=== PATIENT | female | born 1950 | race Caucasian/White ===

== ENCOUNTER → 2017-08-13 | Outpatient (CLI) | payer MEDICARE, SELFPAY ==
[~2017-08-13] MED LIST: ASPI81CH PO; ATEN100 PO; CHOL10002 PO; FENOFIBRIC ACI135 MG PO; FLUO10; Hair, Skin & N1 EACH PO; LEVSOD100 PO; LEVSOD50 PO; LOSA25 PO; METF500C PO; VENL75ER PO
[2017-08-14 10:19] LABS: Source ENDOCER/CERV
== END | disposition home or self-care (01) ==
LOC: LAB 14:40
PROVIDERS: Family Medicine
DX: Z12.4 Encounter for screening for malignant neoplasm of cervix (principal)
CPT/HCPCS: G0145

== ENCOUNTER → 2018-01-14 | Outpatient (CLI) | payer MEDICARE, SELFPAY ==
[~2018-01-14] MED LIST changes: -FLUO10
[2018-01-14 17:10] LABS: Albumin, Blood 3.6 g/dL (3.4-5.0); Albumin/Globulin Ratio 0.9 (0.8-1.8); Bun/Creatinine Ratio 18.6 (12.0-20.0); Calcium, Blood 9.8 mg/dL (8.5-10.1); Creatinine, Blood 1.67 mg/dL (0.40-1.00); Globulin, Blood 3.8 g/dL (2.2-4.0); Percent Saturation 18.3 % (15.0-50.0); Total Protein, Blood 7.4 g/dL (6.4-8.2)
== END ==
LOC: LAB SHORT 12:15 → LAB 12:15
PROVIDERS: Internal Medicine Hematology & Oncology
DX: C50.911 Malignant neoplasm of unspecified site of right female breast (principal); R92.8 Other abnormal and inconclusive findings on diagnostic imaging of breast; M89.9 Disorder of bone, unspecified
CPT/HCPCS: 80053; 82728; 83540; 83550

== ENCOUNTER → 2018-03-10 | Outpatient (CLI) | payer MEDICARE, SELFPAY ==
[2018-03-10 18:34] LABS: Creatinine Urine 69.3 mg/dL (27.00-270.00); Protein, Urine Quantitative 7.2 mg/dL (0.0-11.9)
[2018-03-10 18:37] LABS: Microalbumin, Urine Quant. 7.07 mg/L (0.000-20.000)
== END | disposition home or self-care (01) ==
LOC: LAB SHORT 10:30 → LAB 10:30 → LAB FUT 02-16 11:00
PROVIDERS: Internal Medicine Nephrology
DX: N18.3 Chronic kidney disease, stage 3 (moderate) (principal); D63.1 Anemia in chronic kidney disease; N25.81 Secondary hyperparathyroidism of renal origin; E55.9 Vitamin D deficiency, unspecified; E78.00 Pure hypercholesterolemia, unspecified; R76.9 Abnormal immunological finding in serum, unspecified; R94.5 Abnormal results of liver function studies; R94.6 Abnormal results of thyroid function studies
CPT/HCPCS: 81050; 82043; 82570; 84156

== ENCOUNTER 2018-04-09 09:46 | Day surgery (SDC) | payer MEDICARE ==
[~2018-04-09] VITALS: Ht 162.6 cm; Wt 78.9 kg
[2018-04-09] MEDS ORDERED: FLUO10 (11:33)
== END 2018-04-09 12:58 | disposition home or self-care (01) ==
LOC: ORSCSDS 09:46
PROVIDERS: Internal Medicine Gastroenterology
PROC: 0DBL8ZX Excision of Transverse Colon, Via Natural or Artificial Opening Endoscopic, Diagnostic (ICD-10-PCS; principal; 2018-04-09 11:15)
PROC: 0DBM8ZX Excision of Descending Colon, Via Natural or Artificial Opening Endoscopic, Diagnostic (ICD-10-PCS; principal; 2018-04-09 11:15)
DX: Z12.11 Encounter for screening for malignant neoplasm of colon (principal); D12.3 Benign neoplasm of transverse colon; D12.2 Benign neoplasm of ascending colon; K64.8 Other hemorrhoids; K57.30 Diverticulosis of large intestine without perforation or abscess without bleeding; E11.9 Type 2 diabetes mellitus without complications; E03.9 Hypothyroidism, unspecified; F41.8 Other specified anxiety disorders; I10 Essential (primary) hypertension; E66.9 Obesity, unspecified; Z68.31 Body mass index [BMI] 31.0-31.9, adult; Z79.82 Long term (current) use of aspirin; Z79.84 Long term (current) use of oral hypoglycemic drugs; Z79.899 Other long term (current) drug therapy
CPT/HCPCS: 82947; 88305; J7120

== ENCOUNTER 2021-08-01 11:00 | Day surgery (SDC) | payer MEDICARE ==
[~2021-08-01] VITALS: Ht 162.6 cm; Wt 80.3 kg
[~2021-08-01 11:00] MED LIST changes: +FLUO10
== END 2021-08-01 12:42 | disposition home or self-care (01) ==
LOC: ORSCSDS 11:00
PROVIDERS: Internal Medicine Gastroenterology
PROC: 0DBL8ZX Excision of Transverse Colon, Via Natural or Artificial Opening Endoscopic, Diagnostic (ICD-10-PCS; principal; 2021-08-01 12:45)
DX: Z12.11 Encounter for screening for malignant neoplasm of colon (principal); Z86.010 Personal history of colon polyps; D12.3 Benign neoplasm of transverse colon; K57.30 Diverticulosis of large intestine without perforation or abscess without bleeding; K64.8 Other hemorrhoids; Z79.82 Long term (current) use of aspirin; Z79.899 Other long term (current) drug therapy; Z79.84 Long term (current) use of oral hypoglycemic drugs
CPT/HCPCS: 82947; 88305; J2704; J7120

== ENCOUNTER → 2022-10-25 | Outpatient (CLI) | payer MEDICARE ==
[2022-10-25 19:44] LABS: Percent Saturation 13.9 % (15.0-50.0)
== END | disposition home or self-care (01) ==
LOC: LAB SHORT 15:42
PROVIDERS: Internal Medicine Hematology & Oncology
DX: D50.8 Other iron deficiency anemias (principal)
CPT/HCPCS: 82728; 83540; 83550

== ENCOUNTER → 2025-01-25 | Outpatient (CLI) | payer MEDICARE ==
[2025-01-25 15:20] LABS: Protein, Urine Quantitative 13.0 mg/dL (0.0-11.9)
== END ==
LOC: LAB SHORT 12:17 → LAB 12:17 → LAB FUT 01-21 16:40
PROVIDERS: Internal Medicine Nephrology
DX: N18.30 Chronic kidney disease, stage 3 unspecified (principal); R31.9 Hematuria, unspecified; R80.9 Proteinuria, unspecified
CPT/HCPCS: 81050; 84156

== ENCOUNTER 2025-06-06 09:46 | Day surgery (SDC) | payer MEDICARE ==
[~2025-06-06] VITALS: Ht 162.6 cm; Wt 80.9 kg
[2025-06-06 12:05] VITALS: BP 131/71
== END 2025-06-06 11:58 | disposition home or self-care (01) ==
LOC: ORSCSDS 09:46
PROVIDERS: Specialist
PROC: 0DBM8ZX Excision of Descending Colon, Via Natural or Artificial Opening Endoscopic, Diagnostic (ICD-10-PCS; principal; 2025-06-06 11:30)
DX: Z12.11 Encounter for screening for malignant neoplasm of colon (principal); D12.4 Benign neoplasm of descending colon; K64.8 Other hemorrhoids; K57.30 Diverticulosis of large intestine without perforation or abscess without bleeding; Z86.0101 Personal history of adenomatous and serrated colon polyps; E11.9 Type 2 diabetes mellitus without complications; I45.19 Other right bundle-branch block; Z79.82 Long term (current) use of aspirin; Z79.84 Long term (current) use of oral hypoglycemic drugs; Z79.899 Other long term (current) drug therapy
CPT/HCPCS: 82947; 88305; J2704; J7120